=== PATIENT | male | born 1980 | race Caucasian/White ===

== ENCOUNTER → 2016-05-07 | Outpatient (CLI) | payer MEDICAID ==
[~2016-05-07] MED LIST: ETODOLAC400 MG PO; FLEXERIL10 MG PO; KEFLEX 500MG.500 MG PO; MOBIC15 MG PO; NAPROXEN SODIU500 MG PO; NOMEDS XX; NORCO 325 MG-51 TAB PO; PREDNISONE 20MG20 MG PO; SEPTRA DS 800 M1 TAB PO
[2016-05-07 07:20] LABS: HEMOGLOBIN 16.7 g/dL (14.1-18.0); LYMPH % 34.1 % (10-50)
[2016-05-07 07:21] LABS: LYMPH # 2.1 K/mm3 (0.7-4.5)
--- NOTE | 2016-05-07 09:51 | RADIOLOGY REPORT PS360 ---
[id number] VIEWS HISTORY: SHOULDER PAIN COMPARISON: None FINDINGS: No fracture or dislocation. No lytic or blastic change. There is normal mineralization. The joint spaces are well-preserved. No significant degenerative/arthritic changes. No erosive changes evident. IMPRESSION: Negative, no acute finding
--- NOTE | 2016-05-07 09:51 | RADIOLOGY REPORT PS360 ---
CERVICAL SPINE 4 OR 5 VIEWS HISTORY: NECK PAIN COMPARISON: None FINDINGS: ALIGNMENT:Normal alignment. BONY STRUCTURES:No fracture or dislocation. The vertebral body height is well-maintained. No significant degenerative change. No lytic or blastic change. DISC SPACES:The disc spaces are well-preserved. No significant disc calcification. ADDITIONAL FINDINGS: None IMPRESSION: Negative cervical spine
[2016-05-07 10:53] LABS: BUN 17 mg/dL (7-18)
[2016-05-07 10:54] LABS: GFR (ESTIMATED) 110 ML/MIN (>60)
[2016-05-08 10:40] LABS: HBsAg Screen Negative (Negative); Hep A Ab, IgM Negative (Negative); Hep B Core Ab, IgM Negative (Negative); Hep C Virus Ab <0.1 (0.0-0.9)
== END ==
LOC: LAB 06:59
PROVIDERS: Nurse Practitioner Family
DX: M25.511 Pain in right shoulder (principal); M54.2 Cervicalgia; Z00.00 Encounter for general adult medical examination without abnormal findings

== ENCOUNTER 2017-01-20 18:27 | Emergency (ER) | payer MEDICAID ==
[~2017-01-20] VITALS: Ht 175.3 cm; Wt 96.2 kg
[~2017-01-20 18:27] MED LIST changes: +ETODOLAC200 MG PO; +TRIAMCINOL30 GM/TUBE TP
--- NOTE | 2017-01-20 18:49 | Urgent Treatment Center Report ---
History of Present Issue Date/Time Seen by Provider 01/20/17 1624 Visit Reason Pt arrived:Walked Presenting Problem:PT DESCRIBES PAIN IN HIS THROAT WHEN HE MOVES HIS NECK. HE DENIES PAIN DURING DRINKING AND EATING. PT HAS SWELLING ON THE RT SIDE OF HIS NECK. APPROX 3 DAYS Location if Accident: Onset of symptoms date/time:/ or onset unknown for:MEDICAL HX UNKNOWN Have you (or family members/close friends) recently traveled outside the [place]? N If Yes, where/when: Have you had exposure to infectious disease within the past month? TB? Other? Specify: c/o right anterior neck pain, not throat without any known injury or cause. Pain made worse with movement and swallowing. Throat doesn't feel swollen and able to swallow "just makes my neck more painful". First noticed on Wednesday. "didn't pay much attention to it". Worse yesterday so started taking tylenol and ibuprofen. Seemed to help. Worse today and worsening throughout the day. Now pt reports noticing swelling. headache this morning. Headache but not anterior neck pain improved w/ tylenol this morning. Headache returned around lunch. Ibuprofen helped w/ headache but no longer helping with neck pain. Denies fever, malaise. Mild intermittent cough that makes neck pain worse. "but I smoke". Denies vision changes, dizziness. Denies hx of HTN "that I know of". No hx of CVA. Unsure about family history. Denies daily medications, no surgeries. "never been diagnosed with anything that I know of". PCP Nadege Alvarez. Source patient Exam Limitations no limitations ALLERGIES Coded Allergies: No Known Allergies (08/20/15) Home Medications Reported Medications No Known Home Medications History Medical History General CAD? No Angina: No [place]: No Hypertension? No Hyperlipidemia? No CHF? No DVT? No PE? No COPD? No Asthma? No Anemia? No GERD? No Gastric ulcers? No GI Bleed? No Hernia? No Thyroid Problems? No Hypothyroidism? No CVA? No Seizures? No Diabetes? No Renal Insuffiency? No UTI? No Stones? No BPH? No GB Disease: No Nephritic Syndrome? No Asplenia? No Hepatitis? No Sickle Cell Disease? No Arthritis? No Migraines? No Cataracts? No Glaucoma? No MRSA? No HIV? No TB? No Anxiety? No Depression? No Cancer? No Immunization HX DT/Tetanus 09/04/2014 Surgical Hx Previous Surgery?N Social History Smoking Hx Smoker: Current Every Day Smoker Tobacco: Yes Type Cigarettes Packs/day < 1 Pack Alcohol Alcohol: No Review of Systems All Other Systems Reviewed and Negative Constitutional see HPI, denies chills, denies diaphoresis Eyes see HPI, denies drainage, denies inflammation, denies other (sagging/drooping) ENT missing teeth. denies: ear pain, nose discharge, nose congestion, mouth pain, dental caries, loose teeth, throat pain, throat swelling. Respiratory see HPI, denies shortness of breath, denies wheezing Cardiovascular denies chest pain, denies palpitations Gastrointestinal denies nausea, denies vomiting Musculoskeletal denies back pain, denies other (posterior neck pain) Skin see HPI, denies change in color, denies lesions, denies rash Psychiatric/Neurological see HPI Physical Exam Vital Signs Vital Signs Date Time Temp Pulse Resp B/P Pulse O2 O2 Flow FiO2 Ox Delivery Rate 01/20 1837 98.6 84 20 139/95 97 General Appearance normal appearance, no apparent distress Eye Exam - bilateral eye normal exam, bilateral eye PERRL (@3mm) Comment w/o ptosis Ear, Nose, Throat normal ENT inspection Neck normal inspection, limited neck ROM "because of the pain". Worse w/ rotation to left but also limited with rotation to right and extension; full neck flexion, right anterior neck markedly tender w/o swelling, no lymphadenopathy, no thyroid enlargement, grimicing w/ swallowing on exam Respiratory Status Yes: trachea midline, non tender chest. No: respiratory distress, use of accessory muscles, pain on inspiration, pain on expiration, productive cough, non productive cough. Lung Sounds anterior: lungs clear. posterior: lungs clear. bilateral: lungs clear. 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 No Results/Orders Orders Procedure Date/time Status NECK SOFT TISSUE 01/20 1902 Active Consult MD Physician Consult Consult/PCP Dr. hurtado, ER MD Time Called 1930 Reason Pt. Condition Comments Discussed HPI, exam, rvwd soft tissue neck xray together. Questions concern for carotid dissection or neck mass. Suggest CT if so. Discussed with pt who wants to transfer to ER for further evaluation. "I am just afraid something is wrong. It has just gotten worse in the last two days, especially today." Progress [facility] Progress Notes Date 01/20/17 Time 1939 Comment Report called to July. [employer]. Room 1 available. Departure Departure Time of Disposition 1939 Disposition Still a Patient Clinical Impression Primary Impression: Anterior neck pain Secondary Impressions: Headache Qualifiers: Headache type: unspecified Headache chronicity pattern: acute headache Intractability: not intractable Qualified Code: R51 - Headache Condition STABLE Prescriptions Current Visit Scripts No Known Home Medications at 1953
--- NOTE | 2017-01-20 18:49 | Urgent Treatment Center Report ---
History of Present Issue Date/Time Seen by Provider 01/20/17 6414 Visit Reason Pt arrived:Walked Presenting Problem:PT DESCRIBES PAIN IN HIS THROAT WHEN HE MOVES HIS NECK. HE DENIES PAIN DURING DRINKING AND EATING. PT HAS SWELLING ON THE RT SIDE OF HIS NECK. APPROX 3 DAYS Location if Accident: Onset of symptoms date/time:/ or onset unknown for:MEDICAL HX UNKNOWN Have you (or family members/close friends) recently traveled outside the [place]? N If Yes, where/when: Have you had exposure to infectious disease within the past month? TB? Other? Specify: c/o right anterior neck pain, not throat without any known injury or cause. Pain made worse with movement and swallowing. Throat doesn't feel swollen and able to swallow "just makes my neck more painful". First noticed on Wednesday. "didn't pay much attention to it". Worse yesterday so started taking tylenol and ibuprofen. Seemed to help. Worse today and worsening throughout the day. Now pt reports noticing swelling. headache this morning. Headache but not anterior neck pain improved w/ tylenol this morning. Headache returned around lunch. Ibuprofen helped w/ headache but no longer helping with neck pain. Denies fever, malaise. Mild intermittent cough that makes neck pain worse. "but I smoke". Denies vision changes, dizziness. Denies hx of HTN "that I know of". No hx of CVA. Unsure about family history. Denies daily medications, no surgeries. "never been diagnosed with anything that I know of". PCP Nadege Alvarez. Source patient Exam Limitations no limitations ALLERGIES Coded Allergies: No Known Allergies (08/20/15) Home Medications Reported Medications No Known Home Medications History Medical History General CAD? No Angina: No [place]: No Hypertension? No Hyperlipidemia? No CHF? No DVT? No PE? No COPD? No Asthma? No Anemia? No GERD? No Gastric ulcers? No GI Bleed? No Hernia? No Thyroid Problems? No Hypothyroidism? No CVA? No Seizures? No Diabetes? No Renal Insuffiency? No UTI? No Stones? No BPH? No GB Disease: No Nephritic Syndrome? No Asplenia? No Hepatitis? No Sickle Cell Disease? No Arthritis? No Migraines? No Cataracts? No Glaucoma? No MRSA? No HIV? No TB? No Anxiety? No Depression? No Cancer? No Immunization HX DT/Tetanus 09/04/2014 Surgical Hx Previous Surgery?N Social History Smoking Hx Smoker: Current Every Day Smoker Tobacco: Yes Type Cigarettes Packs/day < 1 Pack Alcohol Alcohol: No Review of Systems All Other Systems Reviewed and Negative Constitutional see HPI, denies chills, denies diaphoresis Eyes see HPI, denies drainage, denies inflammation, denies other (sagging/drooping) ENT missing teeth. denies: ear pain, nose discharge, nose congestion, mouth pain, dental caries, loose teeth, throat pain, throat swelling. Respiratory see HPI, denies shortness of breath, denies wheezing Cardiovascular denies chest pain, denies palpitations Gastrointestinal denies nausea, denies vomiting Musculoskeletal denies back pain, denies other (posterior neck pain) Skin see HPI, denies change in color, denies lesions, denies rash Psychiatric/Neurological see HPI Physical Exam Vital Signs Vital Signs Date Time Temp Pulse Resp B/P Pulse O2 O2 Flow FiO2 Ox Delivery Rate 01/20 1837 98.6 84 20 139/95 97 General Appearance normal appearance, no apparent distress Eye Exam - bilateral eye normal exam, bilateral eye PERRL (@3mm) Comment w/o ptosis Ear, Nose, Throat normal ENT inspection Neck normal inspection, limited neck ROM "because of the pain". Worse w/ rotation to left but also limited with rotation to right and extension; full neck flexion, right anterior neck markedly tender w/o swelling, no lymphadenopathy, no thyroid enlargement, grimicing w/ swallowing on exam Respiratory Status Yes: trachea midline, non tender chest. No: respiratory distress, use of accessory muscles, pain on inspiration, pain on expiration, productive cough, non productive cough. Lung Sounds anterior: lungs clear. posterior: lungs clear. bilateral: lungs clear. 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 No Results/Orders Orders Procedure Date/time Status NECK SOFT TISSUE 01/20 1902 Active Consult MD Physician Consult Consult/PCP Dr. hurtado, ER MD Time Called 1930 Reason Pt. Condition Comments Discussed HPI, exam, rvwd soft tissue neck xray together. Questions concern for carotid dissection or neck mass. Suggest CT if so. Discussed with pt who wants to transfer to ER for further evaluation. "I am just afraid something is wrong. It has just gotten worse in the last two days, especially today." Progress [facility] Progress Notes Date 01/20/17 Time 1939 Comment Report called to July. [employer]. Room 1 available. Departure Departure Time of Disposition 1939 Disposition Still a Patient Clinical Impression Primary Impression: Anterior neck pain Secondary Impressions: Headache Qualifiers: Headache type: unspecified Headache chronicity pattern: acute headache Intractability: not intractable Qualified Code: R51 - Headache Condition STABLE Prescriptions Current Visit Scripts No Known Home Medications at 1953
--- NOTE | 2017-01-20 19:53 | RADIOLOGY REPORT PS360 ---
NECK SOFT TISSUE HISTORY: right anterior neck pain, swelling x 2 days Patient Age: 36 years: Male Ordering Physician: ABHISHEK PENA APRN TECHNIQUE: 2 view soft tissue neck COMPARISON :Cervical spine series from April 2016 FINDINGS Epiglottis appears normal thin unremarkable. Prevertebral, retropharyngeal soft tissues are normal. Aryepiglottic folds satisfactory. The lateral view of cervical spine appears normal. Normal alignment vertebral bodies and disc spaces intact. Apices the lungs clear. AP view shows no significant displacement of the trachea. IMPRESSION: Negative soft tissue neck.
[2017-01-20 20:05] LABS: HEMOGLOBIN 16.8 g/dL (14.1-18.0); LYMPH # 3.1 K/mm3 (0.7-4.5); LYMPH % 31.8 % (10-50)
[2017-01-20 20:32] LABS: BUN 8 mg/dL (7-18)
[2017-01-20 20:33] LABS: GFR (ESTIMATED) 95 ML/MIN (>60)
--- NOTE | 2017-01-20 21:49 | Emergency Room Report ---
History of Present Illness Time Seen by 1999 Presenting Problem in Triage Pt arrived:Walked Presenting Problem:c/o right sided neck pain with radiation to jaw since Wednesday worse with movement Onset of symptoms date/time:01/18/17/ or onset unknown for:MEDICAL HX UNKNOWN Treatment Prior to Arrival: [email or web address] and sent over to ed [facility] Provided by: NURSE Sepsis Risk Assessment: Temp: 98.6 B/P: 149/97 MAP: 114 Pulse: 72 Resp: 20 Recent fever? N Clinical Suspician of Infection? N Mental Status: 1 - Regular (Normal Baseline) Sepsis Risk:Low Sepsis Risk Have you (or family members/close friends) recently traveled outside the [place]? N If Yes, where/when: Have you had exposure to infectious disease within the past month? N TB? Other? Specify: Source patient, RN notes reviewed, family, old records Exam Limitations no limitations Comment 2 day hx of ant neck pain worse with palpation and certain mov with some element of dysphagia with no trauma and no fever or speech sx - Cardiac Chest Pain Chest pain indicative of cardiac No Timing/Duration this evening Severity moderate ALLERGIES Coded Allergies: No Known Allergies (08/20/15) Home Medications Reported Medications No Known Home Medications History Medical History General CAD? No Angina: No [place]: No Hypertension? No Hyperlipidemia? No CHF? No DVT? No PE? No COPD? No Asthma? No Anemia? No GERD? No Gastric ulcers? No GI Bleed? No Hernia? No Thyroid Problems? No Hypothyroidism? No CVA? No Seizures? No Diabetes? No Renal Insuffiency? No End Stage Renal Disease? No UTI? No Stones? No BPH? No GB Disease: No Nephritic Syndrome? No Asplenia? No Hepatitis? No Sickle Cell Disease? No Arthritis? No Migraines? No Cataracts? No Glaucoma? No MRSA? No HIV? No TB? No Anxiety? No Depression? No Cancer? No Immunization Hx DT/Tetanus 09/04/2014 Surgical Hx Previous Surgery?N Social History Smoking Hx Smoker: Current Every Day Smoker Tobacco: Yes Type Cigarettes Packs/day < 1 Pack Alcohol Alcohol: No Drugs none Review of Systems All Other Systems Reviewed and Negative Constitutional denies fever Eyes denies blurred vision, denies drainage ENT see HPI, throat pain. denies: ear discharge, epistaxis, throat swelling. Respiratory denies cough, denies shortness of breath, denies wheezing Cardiovascular denies chest pain, denies palpitations, denies syncope Gastrointestinal denies abdominal pain, denies diarrhea, denies vomiting Genitourinary denies: dysuria, frequency, hesitancy, hematuria. Musculoskeletal denies back pain, denies joint pain, denies joint swelling, denies neck pain Skin denies rash Psychiatric/Neurological denies headache, denies seizure Comment no shah, no cva sx andno jensen changes no trauma no hx of connective tissue disease Physical Exam Vital Signs Vital Signs Date Time Temp Pulse Resp B/P Pulse O2 O2 Flow FiO2 Ox Delivery Rate 01/20 2137 75 20 155/99 98 01/20 2100 98.6 72 20 149/97 98 01/20 2018 74 20 140/100 97 01/20 1946 98.6 81 20 140/101 99 01/20 1837 98.6 84 20 139/95 97 - WBC >12,000 or <4,000 or 10% bands? 2 or more SIRS Criteria Met? B/P:155/99 MAP:114 Creatinine >2.0? UA output<0.5ml/kg/hr for 2 hrs? Platelet count >100,000? Lactate >2.0mmol/1? INR >1.2 or PTT > than 60 sec? Evidence of Organ Dysfunction? Provider documented clinical suspician of infection? N Sepsis Criteria Count: 1 Sepsis Risk: Low Sepsis Risk General Appearance no apparent distress Eye Exam - bilateral eye PERRL, bilateral eye EOMI Ear, Nose, Throat normal pharynx, tender rt paratreal area with no def mass Neck supple, no def masses Respiratory Status No: respiratory distress. Lung Sounds bilateral: lungs clear. 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 No Results/Orders Laboratory Tests 01/20/171954: TSH Pending, Thyroxine (T4) Pending, ESR Pending, Thyroglobulin Antibody Pending , Thyroid Peroxidase Ab Pending 01/20/171954: Sodium 139, Potassium 3.6, Chloride 102, Carbon Dioxide 27, BUN 8, Creatinine 0.9, Estimated Creat Clear 154, Estimated GFR (MDRD) 95, Glucose 90, Calcium 9.3 , Total Bilirubin 0.4, AST 21, ALT 45, Alkaline Phosphatase 99, Creatine Kinase 222, CK-MB (CK-2) Rel Index 0.9, CK and CKMB Interp 2.0, Troponin I < 0.02, Total Protein 8.5 H, Albumin 4.6, Globulin 3.9 H, Albumin/Globulin Ratio 1.2, WBC 9.6, RBC 5.67, Hgb 16.8, Hct 52.7 H, MCV 93.0, RDW 12.5, Plt Count 264, MPV 7.5, Gran % 59.8, Gran # 5.8, Lymphocytes % 31.8, Monocytes % 7.0, Eosinophils % 1.0, Basophils % 0.4, Lymphocytes # 3.1, Monocytes # 0.7, Eosinophils # 0.1, Basophils # 0.0, PUBS MCHC 31.8, MCH 29.6 Current Medication Orders Sig/Prachi Start time Last Medication Dose Route Stop Time Status Admin Iopamidol 100 ML ONCE ONE 01/20 2045 UNV 01/20 IV 01/20 Sodium Chloride 40 ML ONCE ONE 01/20 2045 UNV 01/20 IV 01/20 Sodium Chloride 10 ML ONCE ONE 01/20 2045 UNV 01/20 IV 01/20 Sodium Chloride 10 ML PRN PRN 01/21 2000 AC IV 01/22 1952 Orders Procedure Date/time Status THYROID STIMULATING HORMONE 01/20 2137 Active THYROID AUTOANTIBODIES 01/20 2137 Active THYROXINE (T4) 01/20 2137 Active SED RATE 01/20 2133 Active CTA-NECK 01/[address] SCAN REQUEST 01/20 1958 Active ELECTROCARDIOGRAM REQUEST 01/21 1952 Active IV SALINE LOCK 01/21 1952 Active MANAGER OF DATA 01/21 1952 Active CBC WITH AUTO DIFF 01/21 1952 Complete CARDIAC ENZYMES 01/21 1952 Complete CHEM 12 PROFILE 01/21 1952 Complete XRAY/CT/US XRAY/CT/US CT neck /cta CT interpretation by discussed w/radiologist Time results known: 2145 CT Results normal/NAD Departure Departure Time of Disposition 2145 Disposition DC Home or Self Care(routine) Clinical Impression Primary Impression: Anterior neck pain Secondary Impressions: Headache Qualifiers: Headache type: unspecified Headache chronicity pattern: acute headache Intractability: not intractable Qualified Code: R51 - Headache Condition STABLE Referrals Nadege Alvarez APRN (Family) discussed with dr dinero Patient Instructions DI for Neck Pain Additional Instructions see dr dinero at noon and call pcp for close follow up Discharge Counseling Counseled pt/family regarding diagnosis, test results, medications/RX, follow up needs Prescriptions Current Visit Scripts No Known Home Medications ED Critical Care Critical Care No at [id number]
[2017-01-20 22:03] VITALS: BP 142/95
--- NOTE | 2017-01-21 07:57 | RADIOLOGY REPORT PS360 ---
CTA -NECK COMPARISON: AP and lateral soft tissue views of neck HISTORY: Right-sided neck swelling. Radiating to jaw TECHNIQUE: Multiaxial scans were obtained from the upper chest to the vertex of the brain following injection of IV contrast. Sagittal coronal reformats were evaluated as well. FINDINGS: The lung apices are clear bilaterally. The trachea appears normal. The vocal cords likely appear formed sinuses appear normal. The epiglottis is normal in appearance. There is excellent vascular opacification in both common carotid arteries and both internal carotid arteries appear grossly normal. There is no evidence of occlusion or dissection. Both vertebral arteries appear normal. The prevertebral soft tissues are normal. There is excellent vascular opacification intracranially and is no abnormality of the intracranial circulation. In particular the [place] of [place] and the basilar artery appears normal. IMPRESSION: Essentially unremarkable CT angiogram of neck including vascular evaluation of the brain as well, I agree the [facility] report.
--- NOTE | 2017-01-21 07:57 | RADIOLOGY REPORT PS360 ---
CTA -NECK COMPARISON: AP and lateral soft tissue views of neck HISTORY: Right-sided neck swelling. Radiating to jaw TECHNIQUE: Multiaxial scans were obtained from the upper chest to the vertex of the brain following injection of IV contrast. Sagittal coronal reformats were evaluated as well. FINDINGS: The lung apices are clear bilaterally. The trachea appears normal. The vocal cords likely appear formed sinuses appear normal. The epiglottis is normal in appearance. There is excellent vascular opacification in both common carotid arteries and both internal carotid arteries appear grossly normal. There is no evidence of occlusion or dissection. Both vertebral arteries appear normal. The prevertebral soft tissues are normal. There is excellent vascular opacification intracranially and is no abnormality of the intracranial circulation. In particular the [place] of [place] and the basilar artery appears normal. IMPRESSION: Essentially unremarkable CT angiogram of neck including vascular evaluation of the brain as well, I agree the [facility] report.
[2017-01-22 08:42] LABS: Thyroid Peroxidase (TPO) Ab 13 IU/mL (0-34)
[2017-01-22 12:36] LABS: Thyroglobulin Antibody <1.0 IU/mL (0.0-0.9)
--- OUTSIDE RECORDS SUMMARY | 2017-01-28 16:17 | External Medical Summary Rpt | CCD ---
Author Author , LUH ARVIZU Address Unknown Phone [email or web address] Care Team Providers Care Supply Chain Vice President Name Role Phone [facility] Unavailable Unavailable C[facility], [facility] [employer] Unavailable Unavailable INC, [employer] [facility] Unavailable Unavailable & INTER, [facility] STANLEY, STANLEY Unavailable Unavailable [facility], Unavailable Unavailable [facility] Unavailable Unavailable ADULT & PED, [facility] ADULT & PED IVAN, IVAN Unavailable Unavailable FAUST LEIDY, FAUST Unavailable Unavailable LEIDY FRYMTABITHA, FRYMAN Unavailable Unavailable [facility] Unavailable Unavailable [facility]PITA, [facility] HABASH KEF, HABASH Unavailable Unavailable [facility] Unavailable Unavailable INC, [facility] OCASIO, OCASIO Unavailable Unavailable OCASIO, OCASIO Unavailable Unavailable [facility], Unavailable Unavailable [facility] PAMELA CRISTAL, PAMELA Unavailable Unavailable [facility] Unavailable Unavailable [facility], [facility] JAS GRAYSON Unavailable Unavailable [facility] Unavailable Unavailable SERVICES, [facility] OZOR MAR, OZOR MAR Unavailable Unavailable [facility], Unavailable Unavailable PLLC, [facility] PUND CHR, PUND CHR Unavailable Unavailable WALKER FOR, WALKER Unavailable Unavailable FOR Purpose Continuity of Care Document - 07-29-2011 through 2016 Problems Code Diagnosis DOS Provider Status [id number] PAIN IN 10-29-2016 [facility] [id number] PAIN IN 10-29-2016 [facility] KNEE [facility]ICAL IM[facility]ING ASS [id number] SPRAIN 10-29-2016 [facility] SITE LT INC KNEE INITIAL ENCNTR Z720 TOBACCO USE 10-29-2016 [facility] INC L2489 IRRITANT 09-22-2016 [facility] DERMATITIS INC DUE TO OTHER AGENTS Y76230 PAIN IN 06-21-2016 [facility] RIGHT ANKLE MEDICAL IMAGING ASS N22863 PAIN IN 06-21-2016 [place] RIGHT FOOT [facility] IM[facility] [id number] UNSPECIFIED 06-21-2016 [facility] RIGHT FOOT INC INITIAL ENCOUNTER [id number] UNSPECIFIED 06-21-2016 [place] INJURY MEDICAL RIGHT ANKLE IMAGING ASS INITIAL ENCOUNTER [id number] UNSPECIFIED 06-21-2016 [place] IN[facility]URY MEDICAL RIGHT FOOT IMAGING ASS INITIAL ENCOUNTER E785 HYPERLIPIDE 2016 [facility] TON PHYSICIANS UNSPECIFIED GROUP M542 CERVICALGIA 2016 [facility] PHYSICIANS GROUP R5383 OTHER 2016 [facility] FATIGUE PHYSICIANS GROUP Z0000 ENCOUNTER 05-07-2016 [facility] GEN ADULT [facility] MED EXAM INC W/O ABNORMAL FIND G8929 OTHER 05-06-2016 [facility] CHRONIC PHYSICIANS PAIN GROUP H5213 MYOPIA 04-27-2016 [facility] BILATERAL [id number] STRAIN OT 01-06-2016 [facility] M&T SHLDR PHYSICIANS, UP ARM LEVL PLLC LT ARM INIT ENC 4660 ACUTE 11-07-2013 [facility] INTER 7851 PALPITATION 11-07-2013 [facility] S [facility] & INTER 7862 COUGH 11-07-2013 [facility] INTER V252 STERILIZATI 06-09-2013 [facility] [place] [facility] 91817 MIGRAINE 05-04-2013 [facility] UNSP W/O PEDIATRICS INTRACT W/O & INTER STATUS MIGRAINOSUS V2509 OT GENERAL 04-05-2013 [facility] CNSL&ADVICE & INTER CONTRACEPT MANAGEMENT 00803 OTHER 03-31-2013 [facility] DISEASES OF [facility] CAVITY AND SINUSES 7840 HEADACHE 03-31-2013 [facility] V642 SURG/OTH 03-31-2013 [facility] NOT COMMUNITY CARRIED OUT HOSPITA BECAUSE PTS DECN 29922 OTHER ACUTE 03-30-2013 [facility] PAIN [facility] 76097 VISUAL 03-30-2013 [facility] DISCOMFORT [facility] 26571 NAUSEA 03-30-2013 [facility] ALONE [facility] V1582 PERS HX 03-30-2013 [place] TOBACCO USE COMMUNITY [facility] 460 ACUTE 03-24-2013 [facility] 3671 MYOPIA 06-07-2012 [facility] 13617 REFRACTIVE 06-07-2012 [facility] 7242 LUMBAGO 07-29-2011 [facility] E9278 OTH 07-29-2011 [facility]RE SERVICES PETITIVE MVMNTS/LOAD S Medications Na ND Rx Da Fi Fi Am Da Di Ph RX Ph St me C No te ll ll ou ys ag ar # ys at rm s nt no ma ic us Or Da si cy ia de te s n re d ET 60 07 08 15 3 00 RI Ac OD 50 -1 -1 .0 00 TE ti OL 50 3- 1- 00 01 ve AC 03 20 20 19 AI 90 17 17 16 D 20 1 01 PH 0 AR MG MA CY CA PS #3 UL 93 E 8 HY 00 07 08 [address] 40 -1 -1 .0 00 TE ti OC 60 8- 1- 00 01 ve OD 12 20 20 19 AI ON 40 17 17 21 D -A 1 45 PH CE AR TA MA ND CY NO PH #3 93 7. 8 5- 32 5 IB 53 07 08 30 7 00 RI Ac UP 74 -1 -1 .0 00 TE ti RO 60 8- 1- 00 01 ve FE 46 20 20 19 AI N 50 17 17 21 D 60 1 48 PH 0 AR MG MA CY TA BL #3 ET 93 8 TR 00 06 06 30 10 00 RI Ac IA 16 -0 -3 .0 00 TE ti MC 80 6- 0- 00 01 ve IN 00 20 20 18 AI OL 41 17 17 69 D ON 5 55 PH E AR 0. MA 1% CY CR #3 EA 93 M 8 IL 59 06 06 10 5 00 RI Ac ED 74 -0 -3 .0 00 TE ti NI 60 6- 0- 00 01 ve SO 17 20 20 18 AI NE 50 17 17 69 D 6 56 PH 20 AR MA MG CY TA #3 BL 93 ET 8 IB 67 02 02 90 30 00 RI Ac UP 87 -0 -2 .0 00 TE ti RO 70 1- 4- 00 01 ve FE 32 20 20 16 AI N 10 17 17 93 D 80 5 14 PH 0 AR MG MA CY TA BL #3 ET 93 8 BU 00 02 02 28 14 00 RI Ac IL 18 -0 -2 .0 00 TE ti OP 50 1- 4- 00 01 ve IO 41 20 20 16 AI N 00 17 17 93 D HC 1 10 PH L AR SR MA CY 10 0 #3 MG 93 8 TA BL ET Procedures Procedure DOS Code Location Performer Comment THERAPEUT 23710 [facility] IC 7 [facility] PROPHYLAC INC INC TIC/DX INJECTION SUBQ/IM RADIOLOGI 35198 AI AI C 7 [facility] EXAMINATI INC INC ON KNEE 3 VIEWS RADEX 26823 [facility] SHOULDER 7 [facility] COMPLETE INC INC MINIMUM 2 VIEWS THERAPEUT 56891 [facility] IC 7 [facility] PROPHYLAC INC INC TIC/DX INJECTION SUBQ/IM CRTCHS E0114 [facility] 7 TECHNOLOG TECHNOLOG OT THAN IES INC IES INC WOOD PAIR PAD TIP&HNDGR IP RADEX 33034 [facility] ANKLE 7 MEDICAL COMPLETE IMAGING MINIMUM 3 ASS VIEWS RADEX 84657 [facility] IVAN FOOT 7 MEDICAL COMPLETE IMAGING MINIMUM 3 [place] [address] AI [facility] FREE 7 [facility] [place] [address] AI [facility] THYROID 7 [facility] STIMULATI INC INC NG HORMONE TSH LIPID 25795 [facility] PANEL 7 [facility] INC INC HEPATITIS 55587 [facility] C 7 [facility] ANTIBODY INC INC COMPREHEN 79395 [facility] SIVE 7 [facility] METABOLIC INC INC PANEL HEPATITIS 18493 [facility] A 7 [facility] ANTIBODY INC INC HAAB COLLECTIO 19123 [facility] N VENOUS 7 [facility] BLOOD INC INC VENIPUNCT URE HEPATITIS 59325 [facility] B CORE 7 [facility] [place] [address] [facility] HEPATITIS 7 [facility] B INC INC SURFACE ANTIGEN RADEX 30435 [facility] ST[place] SHOULDER 7 MEDICAL COMPLETE IMAGING MINIMUM 2 ASS VIEWS BLOOD 39920 [facility] COUNT 7 [facility] COMPLETE INC INC AUTO&AUTO DIFRNTL WBC RADEX 26285 [facility] STAN[place] SPINE 7 MEDICAL CERVICAL IMAGING 4 OR 5 ASS VIEWS OPHTH 83296 [facility] 7 XM&EVAL COMPRE NEW PT 1/> VST THERAPEUT 18748 [facility] IC 6 [facility] PROPHYLAC INC INC TIC/DX INJECTION SUBQ/IM ECG 53489 [facility] MARK ROUTINE 4 [facility] ECG PEDIATRIC W/LEAST S & INTER 12 LDS W/I&R PRESSURIZ 59511 K[facility] MARK ED/NONPRE 4 [facility] SSURIZED PEDIATRIC INHALATIO S & INTER N TREATMENT VASECTOMY 76034 [facility] UNI/BI 4 [place] SPX ADULT & W/POSTOP PED SEMEN EXAMS OPHTH 36799 [facility] 3 [facility] XM&EVAL CENTER COMPRE NEW PT 1/> VST DETERMINA 77084 [facility] TION 3 [facility] REFRACTIV CENTER E STATE Encounters Encounter Start End Date Code Location Performer Type Date OFFICE 17507 [facility] 7 7 [facility] T VISIT INC 10 MINUTES HOSPITAL AI - 7 7 [facility] OUTPATIEN INC T HOSPITAL AI - 7 7 [facility] OUTPATIEN INC T OFFICE 19228 [facility] 7 7 MEM [facility] T VISIT 5 INC MINUTES OFFICE 63425 [facility] OUT[facility]EN 7 7 MEM [facility] T VISIT 5 INC MINUTES HOSPITAL AI - 7 7 [facility] OUTPATIEN INC T OFFICE 83105 [facility] FRYMAN OUTPATIEN 7 7 PHYSICIAN T VISIT S GROUP 25 MINUTES HOSPITAL AI - 7 7 [facility] OUTPATIEN INC T OFFICE 82846 [facility] FRYMAN OUTPATIEN 7 7 PHYSICIAN T NEW 30 S GROUP MINUTES EMERGENCY 83623 AI 6 6 MEM HOS[facility] DEPARTMEN INC T VISIT LOW/MODER SEVERITY EMERGENCY 32012 [facility] 6 6 PHYSICIAN FOR DEPARTMEN S, PLLC T VISIT HIGH/URGE NT SEVERITY HOSPITAL AI - 6 6 [facility] OFF[facility] 42802 KISHOR MARK OUTPATIEN 4 4 LEI T VISIT PEDIATRIC 25 S & INTER MINUTES OFFICE 15266 [facility] CONSULTAT 4 4 [facility] [place] ION ADULT & NEW/ESTAB PED PATIENT 30 MIN OFFICE 66677 KISHOR MARK OUTPATIEN 4 4 LEI T VISIT PEDIATRIC 15 S & INTER MINUTES OFFICE 61708 [facility] PAMELA OUTPATIEN 3 3 CRISTAL T NEW 30 PEDIATRIC MINUTES S & INTER EMERGENCY 07561 [facility] 3 3 N [facility] EMER[facility]ENC[facility] 49786 [facility] FAUST 3 3 EMERGENCY [facility] DEPARTMEN SERVICES T VISIT HIGH/URGE NT SEVERITY EMERGENCY 38411 [facility] 3 3 N [facility] T [facility] MODERATE SEVERITY EMERGENCY 19594 [facility] STEW[facility] 3 3 EMERGENCY DEPARTMEN SERVICES T VISIT MODERATE SEVERITY EMERGENCY 48362 [facility] OLMSTEAD CHR 2 2 EMERGENCY DEPARTMEN SERVICES T VISIT HIGH/URGE NT SEVERITY
--- OUTSIDE RECORDS SUMMARY | 2017-01-28 16:17 | External Medical Summary Rpt | CCD ---
Author Author , LUH ARVIZU Address Unknown Phone [email or web address] Care Team Providers Care Museum Service Scheduler Name Role Phone [facility] Unavailable Unavailable CENTER, [facility] [employer] Unavailable Unavailable INC, [employer] [facility] Unavailable Unavailable & INTER, [facility] STANLEY, STANLEY Unavailable Unavailable [facility], Unavailable Unavailable [facility] Unavailable Unavailable ADULT & PED, [facility] PED IVAN, IVAN Unavailable Unavailable FAUST LEIDY, FAUST Unavailable Unavailable LEIDY FRYMTABITHA, FRYMAN Unavailable Unavailable [facility] Unavailable Unavailable HOSPITA, [facility] HABASH KEF, HABASH Unavailable Unavailable [facility] Unavailable Unavailable INC, [facility] OCASIO, OCASIO Unavailable Unavailable [facility], OCASIO Unavailable Unavailable [facility], Unavailable Unavailable [facility] PAMELA CRISTAL, PAMELA Unavailable Unavailable [facility] Unavailable Unavailable IMAGING [facility], [facility] JAS GRAYSON Unavailable Unavailable [facility] Unavailable Unavailable SERVICES, [facility] OZOR MAR, OZOR MAR Unavailable Unavailable [facility], Unavailable Unavailable PLLC, [facility] PUND CHR, PUND CHR Unavailable Unavailable WALKER FOR, WALKER Unavailable Unavailable FOR Purpose Continuity of Care Document - 07-29-2011 through 2016 Problems Code Diagnosis DOS Provider Status [id number] PAIN IN 10-29-2016 [place] [facility] N12285 PAIN IN 10-29-2016 [place] LEFT [facility]NEE [facility]ICAL IM[facility] [id number] SPRAIN 10-29-2016 [facility] SITE LT INC KNEE INITIAL ENCNTR Z720 TOBACCO USE 10-29-2016 [facility] INC L2489 IRRITANT 09-22-2016 [facility] DERMATITIS INC DUE TO OTHER AGENTS J52056 PAIN IN 06-21-2016 [place] RIGHT ANKLE [facility]ICAL IMAGING ASS E05920 PAIN IN 06-21-2016 [place] RIGHT FOOT MEDICAL IMAGING ASS H05961P UNSPECIFIED 06-21-2016 [facility] RIGHT FOOT INC INITIAL ENCOUNTER C48065Y UNSPECIFIED 06-21-2016 [place] INJURY MEDICAL RIGHT ANKLE IMAGING ASS INITIAL ENCOUNTER Z37869K UNSPECIFIED 06-21-2016 [place] INJURY MEDICAL RIGHT FOOT IMAGING ASS INITIAL ENCOUNTER E785 HYPERLIPIDE 2016 [facility] TON PHYSICIANS UNSPECIFIED GROUP M542 CERVICALGIA 2016 [facility] R5383 OTHER 2016 [facility] FATIGUE PHYSICIANS GROUP Z0000 ENCOUNTER 05-07-2016 [facility] GEN ADULT [facility] MED EXAM INC W/O ABNORMAL FIND G8929 OTHER 05-06-2016 [facility] CHRONIC PHYSICIANS PAIN GROUP H5213 MYOPIA 04-27-2016 [facility] BILATERAL [id number] STRAIN OT 01-06-2016 [facility] M&T SHLDR PHYSICIANS, UP ARM LEVL PLLC LT ARM INIT ENC 4660 ACUTE 11-07-2013 [facility] 7851 PALPITATION 11-07-2013 [facility] & INTER 7862 COUGH 11-07-2013 [facility] & INTER V252 STERILIZATI 06-09-2013 [facility] [place] [facility] 37047 MIGRAINE 05-04-2013 [facility] UNSP W/O PEDIATRICS INTRACT W/O & INTER STATUS MIGRAINOSUS V2509 OT GENERAL 04-05-2013 [facility] CNSL&ADVICE & INTER CONTRACEPT MANAGEMENT 12285 OTHER 03-31-2013 [place] DISEASES [facility] CAVITY AND SINUSES 7840 HEADACHE 03-31-2013 [facility] V642 SURG/OTH 03-31-2013 [facility] NOT COMMUNITY CARRIED OUT HOSPITA BECAUSE PTS DECN 28000 OTHER ACUTE 03-30-2013 [facility] PAIN [facility] 38088 VISUAL 03-30-2013 [facility] DISCOMFORT [facility] 49973 NAUSEA 03-30-2013 [facility] ALONE [facility] V1582 PERS HX 03-30-2013 [place] TOBACCO USE COMMUNITY [facility] 460 ACUTE 03-24-2013 [facility] 3671 MYOPIA 06-07-2012 [facility] 11721 REFRACTIVE 06-07-2012 [facility] 7242 LUMBAGO 07-29-2011 [facility] E9278 OTH 07-29-2011 [facility]RE [facility] PETITIVE MVMNTS/LOAD S [...] 1 45 PH CE AR TA MA NV CY NO PH #3 93 7. 8 [...] CY CR #3 EA 93 M 8 MO 59 06 06 10 5 00 RI [...] 02 02 28 14 00 RI Ac MO 18 -0 -2 .0 00 TE ti OP 50 1- 4- 00 01 ve IO 41 20 20 16 AI N 00 17 17 93 D HC 1 10 PH L AR SR MA CY 10 0 #3 MG 93 8 TA BL ET Procedures Procedure DOS Code Location Performer Comment THERAPEUT 03904 [facility] IC 7 [facility] PROPHYLAC INC INC TIC/DX INJECTION SUBQ/IM RADIOLOGI 66807 [facility] AI C 7 [facility] EXAMINATI INC INC ON KNEE 3 VIEWS RADEX 85260 [facility] SHOULDER 7 [facility] COMPLETE INC INC MINIMUM 2 VIEWS THERAPEUT 18013 [facility] IC 7 [facility] PROPHYLAC INC INC TIC/DX INJECTION SUBQ/IM CRTCHS E0114 [facility] 7 TECHNOLOG TECHNOLOG OT THAN IES INC IES INC WOOD PAIR PAD TIP&HNDGR IP RADEX 33169 [facility] IV[facility] ANKLE 7 MEDICAL COMPLETE IMAGING MINIMUM 3 ASS VIEWS RADEX 85653 [place] [facility] FOOT 7 MEDICAL COMPLETE IMAGING MINIMUM 3 [place] [address] [facility] FREE 7 [facility] [place] [address] [facility] THYROID 7 [facility] STIMULATI INC INC NG HORMONE TSH LIPID 20445 [facility] PANEL 7 [facility] INC INC HEPATITIS 06433 [facility] C 7 [facility] ANTIBODY INC INC COMPREHEN 65023 [facility] SIVE 7 [facility] METABOLIC INC INC PANEL HEPATITIS 34723 [facility] A 7 [facility] ANTIBODY INC INC HAAB COLLECTIO 41602 [facility] N VENOUS 7 [facility] BLOOD INC INC VENIPUNCT URE HEPATITIS 92346 [facility] B CORE 7 [facility] [place] [address] [facility] HEPATITIS 7 [facility] B INC INC SURFACE ANTIGEN RADEX 24229 [place] [facility] SHOULDER 7 MEDICAL COMPLETE IMAGING MINIMUM 2 ASS VIEWS BLOOD 41564 [facility] COUNT 7 [facility] COMPLETE INC INC AUTO&AUTO DIFRNTL WBC RADEX 30255 [place] [facility] SPINE 7 MEDICAL CERVICAL IMAGING 4 OR 5 ASS VIEWS OPHTH 85046 [facility] XM&EVAL COMPRE NEW PT 1/> VST THERAPEUT 05669 [facility] IC 6 [facility] PROPHYLAC INC INC TIC/DX INJECTION SUBQ/IM ECG 98054 KISH[facility] MARK ROUTINE 4 [facility]I ECG PEDIATRIC W/LEAST S & INTER 12 LDS W/I&R PRESSURIZ 10758 [facility] MARK ED/NONPRE 4 [facility] SSURIZED PEDIATRIC INHALATIO S & INTER N TREATMENT VASECTOMY 53657 [facility] UNI/BI 4 [place] SPX ADULT & W/POSTOP PED SEMEN EXAMS OPHTH 20724 [facility] 3 [facility] XM&EVAL CENTER COMPRE NEW PT 1/> VST DETERMINA 44791 [facility] TION 3 [facility] REFRACTIV CENTER E STATE Encounters Encounter Start End Date Code Location Performer Type Date OFFICE 31365 [facility] 7 7 [facility] T VISIT INC 10 MINUTES [facility]OSPITAL AI - 7 7 [facility] OUTPATIEN INC T [facility]OSPITAL AI - 7 7 [facility] OUTPATIEN INC T OFFICE 14263 [facility] 7 7 [facility] T VISIT 5 INC MINUTES OFFICE 32249 [facility] OUTPATIEN 7 7 [facility] T VISIT 5 INC MINUTES HOSPITAL AI - 7 7 [facility] OUTPATIEN INC T OFFICE 06165 [facility] OUT[facility] 7 7 PHYSICIAN T VISIT S GROUP 25 MINUTES HOSPITAL AI - 7 7 [facility] OUTPATIEN INC T OFFICE 11565 [facility] OUT[facility] 7 7 PHYSICIAN T NEW 30 S GROUP MINUTES EMERGENCY 11296 AI 6 6 [facility] DEPARTMEN INC T VISIT LOW/MODER SEVERITY EMERGENCY 11212 [facility] 6 6 PHYSICIAN FOR DEPARTMEN S, PLLC T VISIT HIGH/URGE NT SEVERITY HOSPITAL AI - 6 6 [facility] T OFFICE 57899 KISH[facility] MARK OUTPATIEN 4 4 LEI T VISIT PEDIATRIC 25 S & INTER MINUTES OFFICE 50759 [facility] CONSULTAT 4 4 [place] ION ADULT & NEW/ESTAB PED PATIENT 30 MIN OFFICE 15181 K[facility] MARK OUTPATIEN 4 4 LEI T VISIT PEDIATRIC 15 S & INTER MINUTES OFFICE 40776 [facility] PAMELA OUTPATIEN 3 3 CRISTAL T NEW 30 PEDIATRIC MINUTES S & INTER EMERGENCY 23784 [facility] 3 3 N [facility] 92539 [facility] FAUST 3 3 EMERGENCY [facility] DEPARTMEN SERVICES T VISIT HIGH/URGE NT SEVERITY EMERGENCY 93173 [facility] 3 3 N [facility] MODERATE SEVERITY EMERGENCY 90459 [facility] STEW[facility] 3 3 EMERGENCY DEPARTMEN SERVICES T VISIT MODERATE SEVERITY EMERGENCY 60224 [facility] OLMSTEAD CHR 2 2 EMERGENCY DEPARTMEN SERVICES T VISIT HIGH/URGE NT SEVERITY
--- OUTSIDE RECORDS SUMMARY | 2017-01-28 16:18 | External Medical Summary Rpt | CCD ---
Author Author , LUH CHRISTIANCHAPINCITO Address Unknown Phone [email or web address] Care Team Providers Care Compass Operator Name Role Phone [facility] Unavailable Unavailable C[facility], [facility] [employer] Unavailable Unavailable INC, [employer] [facility] Unavailable Unavailable & INTER, [facility] INTER STANLEY, STANLEY Unavailable Unavailable [facility], Unavailable Unavailable [facility] Unavailable Unavailable ADULT & PED, [facility] GOVIND FORBES, GOVIND Unavailable Unavailable LEIDY RASHAUN RODNEY Unavailable Unavailable [facility] Unavailable Unavailable HOSPITA, [facility] HABASH KEF, HABASH Unavailable Unavailable [facility] Unavailable Unavailable INC, [facility] OCASIO, OCASIO Unavailable Unavailable OCASIO, OCASIO Unavailable Unavailable [facility], Unavailable Unavailable [facility] PAMELA JOSE Unavailable Unavailable [facility] Un[facility] Unavailable [facility], [facility] MARK LEI, MARK Unavailable Unavailable [facility] Unavailable Unavailable SERVICES, [facility] OZOR MAR, OZOR MAR Unavailable Unavailable [facility], Unavailable Unavailable PLL[facility], [facility] PUND CHR, PUND CHR Unavailable Unavailable WALKER FOR, WALKER Unavailable Unavailable FOR Purpose Continuity of Care Document - 07-29-2011 through 2016 Problems Code Diagnosis DOS Provider Status [id number] PAIN IN 10-29-2016 [place] RIGHT [facility] SHOULDER [facility] [id number] PAIN IN 10-29-2016 [place] LEFT KNEE [facility]ICAL IM[facility]ING ASS [id number] SPRAIN 10-29-2016 [facility] SITE LT INC KNEE INITIAL ENCNTR Z720 TOBACCO USE 10-29-2016 [facility] INC L2489 IRRITANT 09-22-2016 [facility] DERMATITIS INC DUE TO OTHER AGENTS [id number] PAIN IN 06-21-2016 [place] [facility] ANKLE [facility]ICAL IM[facility]ING ASS H40053 PAIN IN 06-21-2016 [place] RIGHT FOOT MEDICAL IMAGING ASS [id number] UNSPECIFIED 06-21-2016 [facility] SPRAIN [facility] RIGHT FOOT INC INITIAL ENCOUNTER [id number] UNSPECIFIED 06-21-2016 [facility] IN[facility] MEDICAL RIGHT ANKLE IMAGING ASS INITIAL ENCOUNTER [id number] UNSPECIFIED 06-21-2016 [facility] IN[facility] MEDICAL RIGHT FOOT IMAGING ASS INITIAL ENCOUNTER E785 HYPERLIPIDE 2016 [facility] TON PHYSICIANS UNSPECIFIED GROUP M542 CERVICALGIA 2016 [facility] R5383 OTHER 2016 [facility] FATIGUE PHYSICIANS GROUP Z0000 ENCOUNTER 05-07-2016 [facility] GEN ADULT [facility] MED EXAM INC W/O ABNORMAL FIND G8929 OTHER 05-06-2016 [facility] CHRONIC PHYSICIANS PAIN GROUP H5213 MYOPIA 04-27-2016 [facility] BILATERAL [id number] STRAIN OT 01-06-2016 [facility] M[facility]T SHLDR PHYSICIANS, UP ARM LEVL PLLC LT ARM INIT ENC 4660 ACUTE 11-07-2013 [facility] 7851 PALPITATION 11-07-2013 [facility] 7862 COUGH 11-07-2013 [facility] V252 STERILIZATI 06-09-2013 [facility] [place] [facility] 73522 MIGRAINE 05-04-2013 [facility] UNSP W/O PEDIATRICS INTRACT W/O & INTER STATUS MIGRAINOSUS V2509 OT GENERAL 04-05-2013 [facility] CNSL&ADVICE & INTER CONTRACEPT MANAGEMENT 16016 OTHER 03-31-2013 [facility] DISEASES OF [facility] NASAL HOSPITA CAVITY AND SINUSES 7840 HEADACHE 03-31-2013 [facility] V642 SURG/OTH 03-31-2013 [facility] PROC NOT COMMUNITY CARRIED OUT HOSPITA BECAUSE PTS DECN 67689 OTHER ACUTE 03-30-2013 [facility] PAIN [facility] 35093 VISUAL 03-30-2013 [facility] DISCOMFORT [facility]PITA 35295 NAUSEA 03-30-2013 [facility] ALONE [facility] HOSPITA V1582 PERS HX 03-30-2013 [facility] TOBACCO USE [facility] PRES[facility] 460 ACUTE 03-24-2013 [place]OP[facility]ARYNG [facility] ITIS SERVICES 3671 MYOPIA 06-07-2012 [facility] 91087 REFRACTIVE 06-07-2012 [facility] 7242 LUMBAGO 07-29-2011 [facility] E9278 OTH 07-29-2011 [place] OVEREXERT&S EMERGENCY TRENUOUS&RE SERVICES PETITIVE MVMNTS/LOAD S Medications [...] 1 45 PH CE AR TA MA SC CY NO PH #3 93 7. 8 [...] CY CR #3 EA 93 M 8 KY 59 06 06 10 5 00 RI Ac ED 74 -0 -3 .0 00 TE ti NI 60 6- 0- 00 01 ve SO 17 20 20 18 AI NE 50 17 17 69 D 6 56 PH 20 AR MA MG CY TA #3 BL 93 ET 8 BU 00 02 02 28 14 00 RI Ac KY 18 -0 -2 .0 00 TE ti OP 50 1- 4- 00 01 ve IO 41 20 20 16 AI N 00 17 17 93 D HC 1 10 PH L AR SR MA CY 10 0 #3 MG 93 8 TA BL ET IB 67 02 02 90 30 00 RI Ac UP 87 -0 -2 .0 00 TE ti RO 70 1- 4- 00 01 ve FE 32 20 20 16 AI N 10 17 17 93 D 80 5 14 PH 0 AR MG MA CY TA BL #3 ET 93 8 Procedures Procedure DOS Code Location Performer Comment RADIOLOGI 33076 [facility] C 7 [facility] EXAMINATI INC INC ON KNEE 3 VIEWS THERAPEUT 23747 [facility] IC 7 [facility] PROPHYLAC INC INC TIC/DX INJECTION SUBQ/IM RADEX 82959 [facility] SHOULDER 7 [facility] COMPLETE INC INC MINIMUM 2 VIEWS THERAPEUT 64919 [facility] IC 7 [facility] PROPHYLAC INC INC TIC/DX INJECTION SUBQ/IM RADEX 57643 [facility] ANKLE 7 [facility] COMPLETE INC INC MINIMUM 3 VIEWS RADEX 84627 [facility] FOOT 7 [facility] COMPLETE INC INC MINIMUM 3 VIEWS CRTCHS E0114 [facility] 7 TECHNOLOG [facility]OLOG [facility] IES INC WOOD PAIR PAD TIP&HNDGR IP RADEX 19137 [place] STANLEY SPINE 7 MEDICAL CERVICAL IMAGING 4 OR 5 ASS VIEWS RADEX 08824 [place] SHOULDER 7 MEDICAL COMPLETE IMAGING MINIMUM 2 ASS VIEWS HEPATITIS 06689 [facility] B CORE 7 MEM HOS[facility] [place] [address] [facility] HEPATITIS 7 MEM [facility] [place] [address] [facility] FREE 7 [facility] [place] [address] AI [facility] THYROID 7 [facility] STIMULATI INC INC NG HORMONE TSH COLLECTIO 16888 AI [facility] N VENOUS 7 MEM [facility] BLOOD INC INC VENIPUNCT URE HEPATITIS 38836 [facility] A 7 [facility]OS[facility] ANTIBODY INC INC HAAB COMPREHEN 69354 [facility] SIVE 7 MEM H[facility] METABOLIC INC INC PANEL BLOOD 38074 [facility] COUNT 7 MEM H[facility] COMPLETE INC INC AUTO&AUTO DIFRNTL WBC HEPATITIS 21572 [facility] C 7 [facility] ANTIBODY INC INC LIPID 95016 AI CL[facility] PANEL 7 MEM H[facility] INC INC OPHTH 51023 [facility] 7 XM&EVAL COMPRE NEW PT 1/> VST THERAPEUT 25764 AI [facility] IC 6 MEM HOS[facility] PROPHYLAC INC INC TIC/DX INJECTION SUBQ/IM ECG 61777 KISHOR MARK ROUTINE 4 [facility]I ECG PEDIATRIC W/LEAST S & INTER 12 LDS W/I&R PRESSURIZ 90552 KISHOR MARK ED/NONPRE 4 [facility] SSURIZED PEDIATRIC INHALATIO S & INTER N TREATMENT VASECTOMY 37249 [place] MONTES DE [facility] UNI/BI 4 [place] SPX ADULT & W/POSTOP PED SEMEN EXAMS OPHTH 87303 [facility] XM&EVAL CENTER COMPRE NEW PT 1/> VST DETERMINA 16764 [facility] TION 3 EYE CARE [facility] REFRACTIV CENTER E STATE Encounters Encounter Start End Date Code Location Performer Type Date OFFICE 14516 [facility] OUTMEHULEN 7 7 [facility] T VISIT INC 10 MINUTES HOSPITAL AI - 7 7 [facility] OUTPATIEN INC T OFFICE 20549 [facility] OUTPATIEN 7 7 MEM H[facility] T VISIT 5 INC MINUTES HOSPITAL AI - 7 7 MEM [facility] OUTPATIEN INC T OFFICE 23096 [facility] OUTPATIEN 7 7 MEM H[facility] T VISIT 5 INC MINUTES HOSPITAL AI - 7 7 MEM HOSP OUTPATIEN INC T OFFICE 51151 [facility] RASHAUN OUTPATIEN 7 7 PHYSICIAN T VISIT S GROUP 25 MINUTES HOSPITAL AI - 7 7 MEM HOSP OUTPATIEN INC T OFFICE 55782 [facility] FRYMAN OUTPATIEN 7 7 PHYSICIAN T NEW 30 S GROUP MINUTES EMERGENCY 49381 [facility] 6 6 PHYSICIAN FOR DEPARTMEN S, PLLC T VISIT HIGH/URGE NT SEVERITY EMERGENCY 50632 AI 6 6 MEM HOS[facility] DEPARTMEN INC T VISIT LOW/MODER SEVERITY HOSPITAL AI - 6 6 MEM HOSP OUTPATIEN [facility] T OFFICE 69469 KISHOR MARK OUTPATIEN 4 4 LEI T VISIT PEDIATRIC 25 S & INTER MINUTES OFFICE 19837 [facility] CONSULTAT 4 4 [place] ION ADULT & NEW/ESTAB PED PATIENT 30 MIN OFFICE 43082 KISHOR MARK OUTPATIEN 4 4 LEI T VISIT PEDIATRIC 15 S & INTER MINUTES OFFICE 76237 KISH[facility] SANTIAGO OUTPATIEN 3 3 CRISTAL T NEW 30 PEDIATRIC MINUTES S & INTER EMERGENCY 54747 [facility] 3 3 N DEPARTMEN COMMUNITY T VISIT HOSPITA LIMITED/M INOR [facility] - 3 3 N OUTPATIEN COMMUNITY T [facility] - 3 3 N OUTPATIEN COMMUNITY T HOSPITA EMERGENCY 36016 [facility] 3 3 N DEPARTMEN COMMUNITY T VISIT HOSPITA MODERATE SEVERITY EMERGENCY 60840 [facility] 3 3 EMERGENCY LEIDY DEPARTMEN SERVICES T VISIT HIGH/URGE NT SEVERITY EMERGENCY 26114 [facility] STEWART 3 3 EMERGENCY DEPARTMEN SERVICES T VISIT MODERATE SEVERITY EMERGENCY 57949 [facility] OLMSTEAD CHR 2 2 EMERGENCY DEPARTMEN SERVICES T VISIT HIGH/URGE NT SEVERITY
--- OUTSIDE RECORDS SUMMARY | 2017-01-28 16:18 | External Medical Summary Rpt | CCD ---
Demographics Preferred Language Canadian Marital Status Unknown Samaritan Affiliation Unknown Race Unknown Ethnic Group Unknown Author Author , LUH ARVIZU Address Unknown Phone Immunization No patient found.
--- OUTSIDE RECORDS SUMMARY | 2017-01-28 16:18 | External Medical Summary Rpt | CCD ---
Author Author , LUH CHRISTIANCHAPINCITO Address Unknown Phone [email or web address] Care Team Providers Care Supervisor Small Appliance Assembly Name Role Phone [facility] Unavailable Unavailable CENTER, [facility] [employer] Unavailable Unavailable INC, [employer] [facility] Unavailable Unavailable & INTER, [facility] STANLEY, STANLEY Unavailable Unavailable [facility], Unavailable Unavailable [facility] Unavailable Unavailable ADULT & PED, [facility] PED GOVIND FORBES, GOVIND Unavailable Unavailable LEIDY RASHAUN RODNEY Unavailable Unavailable [facility] Unavailable Unavailable HOSPITA, [facility] HABASH KEF, HABASH Unavailable Unavailable [facility] Unavailable Unavailable INC, [facility] OCASIO, OCASIO Unavailable Unavailable OCASIO, OCASIO Unavailable Unavailable [facility], Unavailable Unavailable [facility] PAMELA JOSE Unavailable Unavailable [facility] [...] 2016 Problems Code Diagnosis DOS Provider Status [id number] PAIN IN 10-29-2016 [place] RIGHT [facility]ICAL SHOULDER IMAGING ASS A54712 PAIN IN 10-29-2016 [place] LEFT [facility]NEE MEDICAL IM[facility]ING ASS W6768AH SPRAIN 10-29-2016 [facility] UNSPECIFIED [facility] SITE LT INC KNEE INITIAL ENCNTR Z720 TOBACCO USE 10-29-2016 [facility] INC L2489 IRRITANT 09-22-2016 [facility] DERMATITIS INC DUE TO OTHER AGENTS Z42918 PAIN IN 06-21-2016 [place] RIGHT ANKLE MEDICAL IMAGING ASS N18859 PAIN IN 06-21-2016 [place] RIGHT FOOT MEDICAL IMAGING ASS Y33273F UNSPECIFIED 06-21-2016 [facility] SPRAIN [facility] RIGHT FOOT INC INITIAL ENCOUNTER V62739H UNSPECIFIED 06-21-2016 [facility] RIGHT ANKLE IMAGING ASS INITIAL ENCOUNTER I56928C UNSPECIFIED 06-21-2016 [facility] MEDICAL RIGHT FOOT IMAGING ASS INITIAL ENCOUNTER E785 HYPERLIPIDE 2016 [facility] TON PHYSICIANS UNSPECIFIED GROUP M542 CERVICALGIA 2016 [facility] R5383 OTHER 2016 [facility] FATIGUE PHYSICIANS GROUP Z0000 ENCOUNTER 05-07-2016 [facility] GEN ADULT [facility] MED EXAM INC W/O ABNORMAL FIND G8929 OTHER 05-06-2016 [facility] CHRONIC PHYSICIANS PAIN GROUP H5213 MYOPIA 04-27-2016 [facility] BILATERAL [id number] STRAIN OT 01-06-2016 [facility] M&T SHLDR PHYSICIANS, UP ARM LEVL PLLC LT ARM INIT ENC 4660 ACUTE 11-07-2013 [facility] 7851 PALPITATION 11-07-2013 [facility] 7862 COUGH 11-07-2013 [facility] V252 STERILIZATI 06-09-2013 [facility] [place] [facility] 48814 MIGRAINE 05-04-2013 [facility] UNSP W/O PEDIATRICS INTRACT W/O & INTER STATUS MIGRAINOSUS V2509 OT GENERAL 04-05-2013 [facility] CNSL&ADVICE & INTER CONTRACEPT MANAGEMENT 84353 OTHER 03-31-2013 [place] DISEASES OF [facility] NASAL HOSPITA CAVITY AND SINUSES 7840 HEADACHE 03-31-2013 [facility] V642 SURG/OTH 03-31-2013 [place] PROC NOT COMMUNITY CARRIED OUT HOSPITA BECAUSE PTS DECN 84518 OTHER ACUTE 03-30-2013 [place] PAIN [facility] H[facility] 90994 VISUAL 03-30-2013 [place] DISCOMFORT [facility] H[facility]PITA 12798 NAUSEA 03-30-2013 [place] ALONE [facility] HOSPITA V1582 PERS HX 03-30-2013 [place] TOBACCO USE COMM[facility]ITY PRESENTING [facility]OSP[facility] 460 ACUTE 03-24-2013 [facility]IS [facility] 3671 MYOPIA 06-07-2012 [facility] 59007 REFRACTIVE 06-07-2012 [facility] 7242 LUMBAGO 07-29-2011 [facility] E9278 OTH 07-29-2011 [facility] OVEREXERT&S EMERGENCY TRENUOUS&RE SERVICES PETITIVE MVMNTS/LOAD S [...] 1 45 PH CE AR TA MA PA CY NO PH #3 93 7. 8 [...] CY CR #3 EA 93 M 8 LA 59 06 06 10 5 00 RI Ac ED 74 -0 -3 .0 00 TE ti NI 60 6- 0- 00 01 ve SO 17 20 20 18 AI NE 50 17 17 69 D 6 56 PH 20 AR MA MG CY TA #3 BL 93 ET 8 BU 00 02 02 28 14 00 RI Ac LA 18 -0 -2 .0 00 TE ti [...] Procedure DOS Code Location Performer Comment RADIOLOGI 40346 [facility] C 7 [facility] EXAMINATI INC INC ON KNEE 3 VIEWS THERAPEUT 50711 [facility] IC 7 [facility] PROPHYLAC INC INC TIC/DX INJECTION SUBQ/IM RADEX 36753 [facility] SHOULDER 7 [facility] COMPLETE INC INC MINIMUM 2 VIEWS THERAPEUT 66336 [facility] IC 7 [facility] PROPHYLAC INC INC TIC/DX INJECTION SUBQ/IM RADEX 18410 [facility] ANKLE 7 [facility] COMPLETE INC INC MINIMUM 3 VIEWS RADEX 50915 [facility] FOOT 7 [facility] COMPLETE INC INC MINIMUM 3 VIEWS CRTCHS E0114 [facility] 7 [facility]OLOG [facility] IES INC WOOD PAIR PAD TIP&HNDGR IP RADEX 69660 [place] [facility] SPINE 7 MEDICAL CERVICAL IMAGING 4 OR 5 ASS VIEWS RADEX 26250 [place] SHOULDER 7 MEDICAL COMPLETE IMAGING MINIMUM 2 ASS VIEWS HEPATITIS 67428 [facility] B CORE 7 MEM H[facility] [place] [address] [facility] HEPATITIS 7 MEM H[facility] [place] [address] [facility] FREE 7 [facility] [place] [address] AI CLOUD THYROID 7 MEM H[facility]P [facility] STIMULATI INC INC NG HORMONE TSH COLLECTIO 70065 [facility] N VENOUS 7 MEM H[facility] BLOOD INC INC VENIPUNCT URE HEPATITIS 99169 [facility] A 7 [facility] H[facility] ANTIBODY INC INC HAAB COMPREHEN 72865 [facility] SIVE 7 MEM H[facility] METABOLIC INC INC PANEL BLOOD 48424 [facility] COUNT 7 [facility] H[facility] COMPLETE INC INC AUTO&AUTO DIFRNTL WBC HEPATITIS 36750 [facility] C 7 [facility] ANTIBODY INC INC LIPID 44465 AI CL[facility]D PANEL 7 [facility] INC INC OPHTH 61401 [facility] 7 XM&EVAL COMPRE NEW PT 1/> VST THERAPEUT 46367 [facility]D IC 6 MEM HOS[facility] PROPHYLAC INC INC TIC/DX INJECTION SUBQ/IM ECG 46641 KISHOR MARK ROUTINE 4 [facility]I ECG PEDIATRIC W/LEAST S & INTER 12 LDS W/I&R PRESSURIZ 49005 KISHOR MARK ED/NONPRE 4 [facility] SSURIZED PEDIATRIC INHALATIO S & INTER N TREATMENT VASECTOMY 37341 [place] MONT[facility] DE [facility] UNI/BI 4 [place] SPX ADULT & W/POSTOP PED SEMEN EXAMS OPHTH 44123 [facility] 3 EYE CARE [facility] XM&EVAL CENTER COMPRE NEW PT 1/> VST DETERMINA 56000 [facility] TION 3 EYE CARE [facility] REFRACTIV CENTER E STATE Encounters Encounter Start End Date Code Location Performer Type Date OFFICE 35951 [facility] OUTMEHULEN 7 7 [facility] T VISIT INC 10 MINUTES HOSPITAL AI - 7 7 [facility] OUTPATIEN INC T OFFICE 77769 [facility] OUTPATIEN 7 7 MEM HOS[facility] T VISIT 5 INC MINUTES HOSPITAL AI - 7 7 MEM HOSP OUTPATIEN INC T OFFICE 51951 [facility] OUTPATIEN 7 7 MEM H[facility] T VISIT 5 INC MINUTES HOSPITAL AI - 7 7 MEM [facility] OUTPATIEN INC T OFFICE 11056 [facility] RASHAUN OUTPATIEN 7 7 PHYSICIAN T VISIT S GROUP 25 MINUTES HOSPITAL AI - 7 7 MEM HOS[facility] OUTPATIEN INC T OFFICE 31710 [facility] OUTPATIEN 7 7 PHYSICIAN T NEW 30 S GROUP MINUTES EMERGENCY 82497 [facility] 6 6 PHYSICIAN FOR DEPARTMEN S, PLLC T VISIT HIGH/URGE NT SEVERITY EMERGENCY 24702 AI 6 6 MEM [facility] DEPARTMEN INC T VISIT LOW/MODER SEVERITY HOSPITAL AI - 6 6 MEM H[facility]P OUTPATIEN [facility] T OFFICE 79072 KISHOR MARK OUTPATIEN 4 4 LEI T VISIT PEDIATRIC 25 S & INTER MINUTES OFFICE 94005 [facility] CONSULTAT 4 4 [place] ION ADULT & NEW/ESTAB PED PATIENT 30 MIN OFFICE 40542 KISHOR MARK OUTPATIEN 4 4 LEI T VISIT PEDIATRIC 15 S & INTER MINUTES OFFICE 17845 K[facility] SANTIAGO OUTPATIEN 3 3 CRISTAL T NEW 30 PEDIATRIC MINUTES S & INTER EMERGENCY 24513 [facility] 3 3 N DEPARTMEN COMMUNITY T VISIT HOSPITA LIMITED/M INOR [facility] - 3 3 N OUTPATIEN COMMUNITY T [facility] - 3 3 N OUTPATIEN COMMUNITY T HOSPITA EMERGENCY 65243 [facility] 3 3 N DEPARTMEN COMMUNITY T VISIT HOSPITA MODERATE SEVERITY EMERGENCY 43108 [facility] 3 3 EMERGENCY LEIDY DEPARTMEN SERVICES T VISIT HIGH/URGE NT SEVERITY EMERGENCY 32948 [facility] STEW[facility] 3 3 EMERGENCY DEPARTMEN SERVICES T VISIT MODERATE SEVERITY EMERGENCY 88009 [facility] OLMSTEAD CHR 2 2 EMERGENCY DEPARTMEN SERVICES T VISIT HIGH/URGE NT SEVERITY
--- OUTSIDE RECORDS SUMMARY | 2017-01-28 16:18 | External Medical Summary Rpt | CCD ---
Demographics Preferred Language Cypriot Marital Status Unknown Restorationist Affiliation Unknown Race Unknown Ethnic Group Unknown Author Author , LUH ARVIZU Address Unknown Phone Immunization No patient found.
--- OUTSIDE RECORDS SUMMARY | 2017-01-28 16:19 | External Medical Summary Rpt ---
Author Author GINOCHAPINCITO Baldwin, [facility] [employer] Address Unknown Phone Unavailable Results Erythrocyte sedimentation rate by Westergren method Observa Value Referen Units Interpr Notes Date tion ce etation Range Erythrocy 0 - 15 mm/hr Normal No Jan 20 te informati 2016 7:55 sedimenta on in PM tion rate source by data Westergre n method Thyroxine (T4) [Mass/volume] in Serum or Plasma Observa Value Referen Units Interpr Notes Date tion ce etation Range Thyroxine 4.7 - ug/dl Normal No Jan 20 (T4) 13.3 inform2016 7:55 [Mass/vol on in PM ume] in source Serum or data Plasma Thyrotropin [Units/volume] in Serum or Plasma Observa Value Referen Units Interpr Notes Date tion ce etation Range Thyrotrop 0.358 - uIU/ml No No Jan 20 in 3.740 informati informati 2016 7:55 [Units/vo on in on in PM lume] in source source Serum or data data Plasma CBC W Auto Differential panel in Blood Observa Value Referen Units Interpr Notes Date tion ce etation Range Basophils 0 - 0.2 K/MM3 Normal No Jan 20 inform2016 7:55 [#/volume on in PM ] in source Blood by data Automated count Basophils 0.1 - 2.0 % Normal No Jan 20100 informati 2016 7:55 leukocyte on in PM s in source Blood by data Automated count Eosinophi 0.0 - 0.4 K/mm3 Normal No Jan 20 ls informati 2016 7:55 [#/volume on in PM ] in source Blood by data Automated count Eosinophi 0.1 - % Normal No Jan 20 ls/100 12.0 informati 2016 7:55 leukocyte on in PM s in source Blood by data Automated count Granulocy 1.3 - 8.0 K/mm3 Normal No Jan 20 malaika informati 2016 7:55 [#/volume on in PM ] in source Blood by data Automated count Granulocy 37.0 - % Normal No Jan 20 malaika/100 80.0 informati 2017 7:55 leukocyte on in PM s in source Blood by data Automated count Hematocri 42.0 - % High No Jan 20 t [Volume 52.0 informati 2017 7:55 on in PM Fraction] source of Blood data Hemoglobi 14.1 - g/dL Normal No Jan 20 n 18.0 informati 2017 7:55 [Mass/vol on in PM ume] in source Blood data Lymphocyt 0.7 - 4.5 K/mm3 Normal No Jan 20 es informati 2017 7:55 [#/volume on in PM ] in source Unspecifi data ed specimen by Automated count Lymphocyt 10 - 50 % Normal No Jan 20 es informati 2017 7:55 [#/volume on in PM ] in source Unspecifi data ed specimen by Automated count Erythrocy 27 - 31.2 pg Normal No Jan 20 te mean informati 2016 7:55 corpuscul on in PM ar source hemoglobi data n [Entitic mass] Erythrocy 31.8 - g/dl Normal No Jan 20 te mean 35.4 informati 2017 7:55 corpuscul on in PM ar source hemoglobi data n concentra tion [Mass/vol ume] by Automated count Erythrocy 82.2 - fl Normal No Jan 20 te mean 97.8 informati 2017 7:55 corpuscul on in PM ar volume source [Entitic data volume] by Automated count Monocytes 0.1 - 1.0 K/mm3 Normal No Jan 20 informati 2016 7:55 [#/volume on in PM ] in source Blood by data Automated count Monocytes 1.7 - 9.3 % Normal No Jan 20 /100 informati 2017 7:55 leukocyte on in PM s in source Blood by data Automated count Platelet 7.4 - fl Normal No Jan 20 mean 10.4 informati 2017 7:55 volume on in PM [Entitic source volume] data in Blood by Automated count Platelets 142 - 424 K/mm3 Normal No Jan 20 informati 2017 7:55 [#/volume on in PM ] in source Blood data Erythrocy 4.6 - 6.2 M/mm3 Normal No Jan 4 malaika informati 2017 7:55 [#/volume on in PM ] in source Amniotic data fluid Erythrocy 11.5 - % Normal No Jan 20 te 17.5 informati 2017 7:55 distribut on in PM ion width source [Entitic data volume] by Automated count Leukocyte 4.8 - K/MM3 Normal No Oct 4 s 10.8 informati 2017 7:55 [#/volume on in PM ] in source Blood data
--- OUTSIDE RECORDS SUMMARY | 2017-01-28 16:19 | External Medical Summary Rpt ---
Author Author GINOCHAPINCITO Baldwin, [facility] [employer] [employer] Address Unknown Phone Unavailable [...]
== END 2017-01-20 22:03 | disposition home or self-care (01) ==
LOC: UTC 18:27 → ER 18:33 → UTC 18:33 → ER 22:03
PROVIDERS: Emergency Medicine
DX: M54.2 Cervicalgia (principal); R51 Headache; F17.210 Nicotine dependence, cigarettes, uncomplicated

== ENCOUNTER → 2017-02-03 | Outpatient (CLI) | payer MEDICAID ==
--- NOTE | 2017-02-04 05:03 | RADIOLOGY REPORT PS360 ---
US THYROID HISTORY: THYROMEGLY ORDERING PHYSICIAN: Naveen Styles MD PATIENT AGE: 36 years COMPARISON: None FINDINGS: Right lobe: 4.5 x 1.5 x 1.7 cm. Homogeneous echogenicity. No nodules. Left lobe: 4.7 x 1.5 x 2.1 cm with homogeneous echogenicity. No nodules Isthmus: Slightly prominent at 4 mm. IMPRESSION: Mild thyromegaly. No obvious nodules.
--- NOTE | 2017-02-04 13:19 | RADIOLOGY REPORT PS360 ---
PROCEDURE: 2-D M-mode and color Doppler study INDICATIONS FOR THE TEST: Chest pain COPD Heart Murmur Tobacco Smoking+ Palpitations+ Fatigue Syncope Edema Hypertension+Diabetes Mellitus Rheumatic Fever SOB+ATWOOD Obesity+Hyperlipidemia Family History HD Additional History ABN EKG, dizziness PATIENT INFORMATION HEIGHT: 69 WEIGHT:210 GENDER: Male B/P:152/91 2-D/M-MODE INTERPRETATION: 2-D MEASUREMENTS OBSERVED VALUES IN CMS Right Ventricular Dimension (RVDd) 2.3 Interventricular Septum (Thickness)(IVsd) 1.0 Left Ventricular Internal Dimensions(LVIDd) 4.8 Left Ventricular Posterior Wall (Thickness)(LVPWd) 1.0 Aortic Root 2.9 Aortic Cusp Separation 2.0 Left Atrial Dimensions (LAD) 3.6 2D 1. Left atrium is normal size, left ventricle is normal size, there is no concentric left ventricular hypertrophy, visually estimated ejection fraction 55% with no obvious regional wall motion abnormality. 2. Right atrium and right ventricle are normal size and contractility. 3. The aortic, mitral and tricuspid valve are grossly normal. 4. The pulmonic valve is poorly visualized. 5. No significant pericardial effusion noted. DOPPLER INTERROGATION: Doppler interrogation of the aortic, mitral and tricuspid valvular presence of mild mitral and tricuspid regurgitation, tricuspid and jet velocity insufficient for calculation of the right ventricular systolic pressure, diastolic parameters are within normal range. CONCLUSION: 1. Normal left ventricular size, preserved left ventricular systolic function, visually estimated ejection fraction 55% with no obvious regional wall motion abnormality, diastolic parameters are within normal range. 2. Mild mitral and tricuspid regurgitation. 3. No significant pericardial effusion noted.
== END ==
LOC: RT 09:30
DX: R00.2 Palpitations (principal); R94.31 Abnormal electrocardiogram [ECG] [EKG]; I10 Essential (primary) hypertension; E01.0 Iodine-deficiency related diffuse (endemic) goiter